=== PATIENT | male | born 1970 | race African-American/Black ===

== ENCOUNTER 2019-01-26 12:58 | Inpatient (IN) | payer OTHER ==
[2019-01-26 17:16] VITALS: BMI 31.1
--- NOTE | 2019-01-26 18:33 | HP ---
CIWA Score Nausea/Vomitin-No Nausea/No Vomiting (a) Muscle Tremors: 2 Anxiety: 3 Agitation: 1-Slight > Activity Paroxysmal Sweats: 3 Orientation: 0-Oriented Tacttile Disturbances: 1-Very Mild Itch/Numbness Auditory Disturbances: 0-None Visual Disturbances: 0-None Headache: 2-Mild CIWA-Ar Total Score: 12 - Admission Criteria OASAS Guidelines: Admission for Medically Managed Detox: Requires at least one of the followin. CIWA greater than 12 2. Seizures within the past 24 hours 3. Delirium tremens within the past 24 hours 4. Hallucinations within the past 24 hours 5. Acute intervention needed for co occurring medical disorder 6. Acute intervention needed for co occurring psychiatric disorder 7. Severe withdrawal that cannot be handled at a lower level of care (continued vomiting, continued diarrhea, abnormal vital signs) requiring intravenous medication and/or fluids 8. Admitting History and Physical - Past Medical History RESTORATION SILVERSMITH: Yes: Seizure, Syncope Cardiovascular: Yes: HTN Infectious Disease: Yes: AIDS, HIV - Past Surgical History Past Surgical History: Yes: Hernia Repair, Tonsillectomy - Smoking History Smoking history: Never smoked - Alcohol/Substance Use Hx Alcohol Use: Yes Number of Drinks Daily: 3 History of Substance Use: reports: Cocaine, Marijuana Admission ROS [facility] Allergies/Adverse Reactions: Allergies Allergy/AdvReac Type Severity Reaction Status Date / Time No Known Allergies Allergy Verified 01/26/19 17:09 History of Present Illness: 48 y.o. M HIV (On [facility], tx at [facility]- most recent cd4 400, viral load 75 as per patient), HTN, prediabetes, migraines, spinal meningitis at age 4 presenting for detox. Interested in rehab. Recommended here by his leather case finisher. Alcohol: Drinks daily, drink of choice is rum, but drinks vodka & tequila sometimes. Last drink was this morning. Has passed out twice from not drinking. Had a seizure in early 2018 from not drinking. Drinks 2 pints daily. Started at age 16 Crack cocaine: Smokes 2-3 bags occasionally, not daily. Last used last week. Started 2010. Marijuana: Seldom use. Started age 16. PSH:2007- umbilical hernia repair, 1999 tonsillectomy & adenoids Social hx: lives in HIV housing in [place]. Works as a peer worker with the opioid crisis. Says he has a great family support system. All: nkda/nkfa Meds: bactrim, azithromycin, lisinopril 10mg daily, metformin On physical exam, large macular purple lesions present diffusely across face, chest, back, abdomen, upper & lower extremities. Patient states these have been present x3 weeks. Says he has seen his HIV doctor and a jig grinder recently but this rash became worse after seeing these physicians. -I have strongly urged the patient to follow up with his HIV specialist as well as his jig grinder regarding this rash, as it clinically resembles kaposi's sarcoma. I have also expressed the importance of compliance with his medications. - Ebola screening Have you traveled outside of the country in the last 21 days: No Have you had contact with anyone from an Ebola affected area: No - Review of Systems Constitutional: Chills, Night Sweats Respiratory: reports: Cough (only at night when lying down) Cardiac: reports: No Symptoms Reported GI: reports: No Symptoms Reported Musculoskeletal: reports: No Symptoms Reported Integumentary: reports: Lesions (see physical exam) Neuro: reports: Headache (has h/o migraines), Tremors Endocrine: reports: No Symptoms Reported Hematology: reports: No Symptoms Reported Psychiatric: reports: Mood/Affect Appropiate, Orientated x3 Patient History - Smoking Cessation Smoking history: Never smoked - Substances abused Alcohol Substance route: Oral Frequency: Daily Amount used: 1 pint of rum/tequila Age of first use: 16 Date of last use: 01/26/19 Admission Physical Exam [facility] - Vital Signs Vital Signs: Vital Signs - 24 hr 01/26/19 17:13 Temperature 98.0 F Pulse Rate 94 H Respiratory 16 Rate Blood Pressure 146/86 - Physical General Appearance: Yes: Anxious HEENTM: Yes: EOMI, Hearing grossly Normal, Normal ENT Inspection, Normocephalic , KAREN Respiratory: Yes: Lungs Clear, Normal Breath Sounds Neck: Yes: Within Normal Limits Cardiology: Yes: Regular Rhythm, Regular Rate, S1, S2 Abdominal: Yes: Normal Bowel Sounds, Non Tender, Soft Musculoskeletal: Yes: full range of Motion Extremities: Yes: Tremors Neurological: Yes: review rn II-XII NML intact, Fully Oriented, Alert, Normal Mood/ Affect Integumentary: Yes: Other (Diffuse macular rash throughout entire body, lesions ~3-5cm varying in size- some crusting, some open & productive of blood, some closed and dry; face, chest, UE/LE's, chest, abdomen, back-- purple) - Diagnostic (1) Alcohol abuse Current Visit: Yes Status: Acute (2) Cocaine abuse Current Visit: Yes Status: Acute (3) Marijuana abuse Current Visit: Yes Status: Acute Cleared for Admission S - Detox or Rehab [facility] Level of Care: Medically Supervised Detox Regimen/Protocol: Librium Breathalyzer - Breathalyzer Breathalyzer: 0 Urine Drug Screen - Test Device Lot number: [id number] Expiration date: 09/01/20 - Control Is test valid?: Yes - Results Drug screen NEGATIVE: No Urine drug screen results: THC-Marijuana, SILVIA-Cocaine Inpatient Rehab Admission - Rehab Decision to Admit Inpatient rehab admission?: No
--- NOTE | 2019-01-26 19:12 | PN ---
Teaching Attending Note Name of Resident: Denita Mac ATTENDING PHYSICIAN STATEMENT I saw and evaluated the patient. I reviewed the resident's note and discussed the case with the resident. I agree with the resident's findings and plan as documented. SUBJECTIVE: 48 y.o. 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 Interested in rehab. Recommended here by his family caseworker from [facility] . Alcohol: 1-2 pints /day , starts drinking in the mornings , reports blackouts and a seizure in 2019 after stopping drinking alcohol. First age of use 16 . Crack cocaine: 2-3 bags via inhalation occasionally since 2010, Last used 1 week ago. Marijuana: Seldom used, since age 16. PSH:2007- umbilical hernia repair, 1999 tonsillectomy & adenoids OBJECTIVE: wnwd Skin : large macular purplish lesions present diffusely across face, chest, back, abdomen, upper & lower extremities, per pt present x 3 weeks. Vital Signs - 24 hr 01/26/19 17:13 Temperature 98.0 F Pulse Rate 94 H Respiratory 16 Rate Blood Pressure 146/86 ASSESSMENT AND PLAN: Alcohol dependence - Librium detox .
[2019-01-26] MEDS ORDERED: BISMUTH SUBSALICYLATE 524 MG/30 ML UD PO PRN (19:21)
[2019-01-26] MEDS ORDERED: METHOCARBAMOL 500 MG TABLET PO PRN (19:21)
[2019-01-26] MEDS ORDERED: MAGNESIUM HYDROX 2400MG/30ML ORAL SUSPENSION 30 ML CUP PO PRN (19:21)
[2019-01-26] MEDS ORDERED: MAGNESIUM CITRATE 300 ML BOTTLE PO PRN (19:21)
[2019-01-26] MEDS ORDERED: ACETAMINOPHEN 325 MG TABLET (FP) PO PRN ×2 (19:21)
[2019-01-26] MEDS ORDERED: MAG HYDROX/AL HYDROX/SIMETH 30 ML UNIT-DOSE CUP PO PRN (19:21)
[2019-01-26] MEDS ORDERED: IBUPROFEN 400 MG TABLET (FP) PO PRN (19:21)
[2019-01-26] MEDS ORDERED: MENTHOL/PHENOL 1 EACH UD MM PRN (19:21)
[2019-01-26] MEDS ORDERED: chlordiazePOXIDE HCL 10 MG CAPSULE PO PRN (19:21)
[2019-01-26] MEDS ORDERED: SODIUM CHLORIDE FOR INHALATION 3 ML VIAL.NEB IH PRN (19:38)
[2019-01-26] MEDS: chlordiazePOXIDE HCL 25 MG CAPSULE PO SCH (20:27)
[2019-01-26] MEDS: LISINOPRIL 10 MG TABLET (FP) PO SCH (20:27)
[2019-01-26] MEDS: THIAMINE HCL 100 MG TABLET (FP) PO SCH (22:14)
[2019-01-26] MEDS: MELATONIN 5 MG TABLETS PO PRN (22:14)
[2019-01-27] MEDS: chlordiazePOXIDE HCL 25 MG CAPSULE PO SCH ×3 (05:57→22:49)
[2019-01-27] MEDS: metFORMIN HCL 500 MG TABLET (FP) PO SCH ×2 (06:00→16:56)
[2019-01-27] MEDS: LISINOPRIL 10 MG TABLET (FP) PO SCH (10:21)
[2019-01-27] MEDS: PRENATAL VITAMINS W/ FOLIC ACID TABLET (FP) PO SCH (10:22)
[2019-01-27] MEDS: ATOVAQUONE 750 MG/5 ML (UNIT-DOSE PACKAGING) PO SCH ×2 (11:57→22:49)
[2019-01-27] MEDS: ABACAVIR/DOLUTEGRAVIR/LAMIVUDI (TRIUMEQ) TABLET -NF PO SCH (11:58)
[2019-01-27 12:31] LABS: ALBUMIN 3.4 g/dl (3.4-5.0); BILIRUBIN,TOTAL 0.2 mg/dL (0.2-1); BLOOD UREA NITROGEN 12.9 mg/dL (7-18); CALCIUM 8.6 mg/dL (8.5-10.1); CREATININE 0.8 mg/dL (0.55-1.3); POTASSIUM 4.6 mmol/L (3.5-5.1); TOT PROT 8.2 g/dl (6.4-8.2)
[2019-01-27 12:36] LABS: HEMATOCRIT 36.1 % (35.4-49); HEMOGLOBIN 11.7 GM/dL (11.7-16.9); MCH 28.5 pg (25.7-33.7); MCHC 32.5 g/dl (32.0-35.9); MEAN CELL VOLUME 87.9 fl (80-96); MEAN PLT VOLUME 8.9 fl (7.5-11.1); PLATELET COUNT 331 K/MM3 (134-434); RDW 17.6 % (11.9-15.9)
[2019-01-27 13:05] LABS: WHITE BLOOD COUNT 1.9 K/mm3 (4.0-10.0)
--- NOTE | 2019-01-27 16:22 | PN ---
S CIWA - CIWA Score Nausea/Vomitin-No Nausea/No Vomiting Muscle Tremors: 3 Anxiety: 3 Agitation: 1-Slight > Activity Paroxysmal Sweats: 3 Orientation: 0-Oriented Tacttile Disturbances: 2-Mild Itch/Numbness/Burn Auditory Disturbances: 0-None Visual Disturbances: 0-None Headache: 0-None Present CIWA-Ar Total Score: 12 BHS Progress Note (SOAP) Subjective: Sweating, Tremors, Anxious, Fatigue. Objective: PATIENT A & O X 3. IN NO ACUTE DISTRESS. 01/27/19 16:23 Vital Signs Temperature 97.2 F L 01/27/19 06:09 Pulse Rate 88 01/27/19 06:09 Respiratory Rate 18 01/27/19 06:09 Blood Pressure 115/72 01/27/19 06:09 O2 Sat by Pulse Oximetry (%) Laboratory Tests 01/27/19 01/27/19 01/27/19 05:56 07:55 07:55 WBC 1.9 L* RBC 4.10 Hgb 11.7 Hct 36.1 MCV 87.9 MCH 28.5 MCHC 32.5 RDW 17.6 H Plt Count 331 MPV 8.9 Sodium 139 Potassium 4.6 Chloride 108 H Carbon Dioxide 23 Anion Gap 8 BUN 12.9 Creatinine 0.8 Est GFR (CKD-EPI)AfAm 122.43 Est GFR (CKD-EPI)NonAf 105.63 POC Glucometer 97 Random Glucose 96 Calcium 8.6 Total Bilirubin 0.2 AST 36 ALT 35 Alkaline Phosphatase 193 H Total Protein 8.2 Albumin 3.4 RPR Titer 01/27/19 07:55 WBC RBC Hgb Hct MCV MCH MCHC RDW Plt Count MPV Sodium Potassium Chloride Carbon Dioxide Anion Gap BUN Creatinine Est GFR (CKD-EPI)AfAm Est GFR (CKD-EPI)NonAf POC Glucometer Random Glucose Calcium Total Bilirubin AST ALT Alkaline Phosphatase Total Protein Albumin RPR Titer Nonreactive LABS NOTED. Assessment: 01/27/19 16:23 WITHDRAWAL SYMPTOMS. ELEVATED ALKALINE PHOSPHATASE LEVEL. LEUKOPENIA (PATIENT HAS HISTORY OF H.I.V.). Plan: CONTINUE DETOX. INCREASE DAILY PO WATER INTAKE.
[2019-01-27] MEDS: hydrOXYzine PAMOATE 25 MG CAPSULE (FP) PO PRN (18:07)
[2019-01-27] MEDS: THIAMINE HCL 100 MG TABLET (FP) PO SCH (22:49)
[2019-01-27] MEDS: MELATONIN 5 MG TABLETS PO PRN (22:52)
[2019-01-28] MEDS: chlordiazePOXIDE 5 MG CAPSULE PO SCH ×3 (05:24→22:16)
[2019-01-28] MEDS: metFORMIN HCL 500 MG TABLET (FP) PO SCH ×2 (07:55→17:44)
--- NOTE | 2019-01-28 09:47 | PN ---
[facility] CIWA - CIWA Score Nausea/Vomitin-Mild Nausea/No Vomiting Muscle Tremors: 2 Anxiety: 2 Agitation: 2 Paroxysmal Sweats: 1-Minimal Palms Moist Orientation: 0-Oriented Tacttile Disturbances: 1-Very Mild Itch/Numbness Auditory Disturbances: 0-None Visual Disturbances: 0-None Headache: 1-Very Mild CIWA-Ar Total Score: 10 S Progress Note (SOAP) Subjective: 48 years old male admitted on 01/26/19 for alcohol withdrawal sx management treated with librium detox regimen tolerate well at this time ate breakfast tolerate food and fluid well Objective: 01/28/19 09:50 Vital Signs Temperature 97.8 F 01/28/19 09:07 Pulse Rate 95 H 01/28/19 09:07 Respiratory Rate 18 01/28/19 09:07 Blood Pressure 126/83 01/28/19 09:07 O2 Sat by Pulse Oximetry (%) Laboratory Last Values WBC 1.9 K/mm3 (4.0-10.0) L* 01/27/19 07:55 RBC 4.10 M/mm3 (4.00-5.60) 01/27/19 07:55 Hgb 11.7 GM/dL (11.7-16.9) 01/27/19 07:55 Hct 36.1 % (35.4-49) 01/27/19 07:55 MCV 87.9 fl (80-96) 01/27/19 07:55 MCH 28.5 pg (25.7-33.7) 01/27/19 07:55 MCHC 32.5 g/dl (32.0-35.9) 01/27/19 07:55 RDW 17.6 % (11.9-15.9) H 01/27/19 07:55 Plt Count 331 K/MM3 (134-434) 01/27/19 07:55 MPV 8.9 fl (7.5-11.1) 01/27/19 07:55 Sodium 139 mmol/L (136-145) 01/27/19 07:55 Potassium 4.6 mmol/L (3.5-5.1) 01/27/19 07:55 Chloride 108 mmol/L (98-107) H 01/27/19 07:55 Carbon Dioxide 23 mmol/L (21-32) 01/27/19 07:55 Anion Gap 8 MMOL/L (8-16) 01/27/19 07:55 BUN 12.9 mg/dL (7-18) 01/27/19 07:55 Creatinine 0.8 mg/dL (0.55-1.3) 01/27/19 07:55 Est GFR (CKD-EPI)AfAm 122.43 01/27/19 07:55 Est GFR (CKD-EPI)NonAf 105.63 01/27/19 07:55 POC Glucometer 91 UNITS (80-120) 01/28/19 05:23 Random Glucose 96 mg/dL (74-106) 01/27/19 07:55 Calcium 8.6 mg/dL (8.5-10.1) 01/27/19 07:55 Total Bilirubin 0.2 mg/dL (0.2-1) 01/27/19 07:55 AST 36 U/L (15-37) 01/27/19 07:55 ALT 35 U/L (13-61) 01/27/19 07:55 Alkaline Phosphatase 193 U/L (45-117) H 01/27/19 07:55 Total Protein 8.2 g/dl (6.4-8.2) 01/27/19 07:55 Albumin 3.4 g/dl (3.4-5.0) 01/27/19 07:55 RPR Titer Nonreactive (NONREACTIVE) 01/27/19 07:55 lab noted long history of hiv treated with triumeq wbc 1.9 patient acknowledged low wbc from hiv and ART patient agrees to bringing in lab report to ID provider for follow up 01/28/19 09:51 Assessment: 01/28/19 09:50 alcohol withdrawal sx Plan: continue librium detox regimen
[2019-01-28] MEDS: ABACAVIR/DOLUTEGRAVIR/LAMIVUDI (TRIUMEQ) TABLET -NF PO SCH (10:43)
[2019-01-28] MEDS: PRENATAL VITAMINS W/ FOLIC ACID TABLET (FP) PO SCH (10:43)
[2019-01-28] MEDS: LISINOPRIL 10 MG TABLET (FP) PO SCH (10:43)
[2019-01-28] MEDS: ATOVAQUONE 750 MG/5 ML (UNIT-DOSE PACKAGING) PO SCH ×2 (10:44→22:16)
[2019-01-28] MEDS: FLUTICASONE PROPIONATE IH SCH (13:39)
[2019-01-28] MEDS: THIAMINE HCL 100 MG TABLET (FP) PO SCH (22:16)
[2019-01-28] MEDS: MELATONIN 5 MG TABLETS PO PRN (22:16)
[2019-01-28] MEDS: hydrOXYzine PAMOATE 25 MG CAPSULE (FP) PO PRN (22:17)
[2019-01-29] MEDS ORDERED: chlordiazePOXIDE HCL 10 MG CAPSULE PO PRN
[2019-01-29] MEDS ORDERED: chlordiazePOXIDE HCL 10 MG CAPSULE PO SCH (05:00)
[2019-01-29] MEDS: metFORMIN HCL 500 MG TABLET (FP) PO SCH (07:26)
[2019-01-29] MEDS: PRENATAL VITAMINS W/ FOLIC ACID TABLET (FP) PO SCH (10:21)
[2019-01-29] MEDS: LISINOPRIL 10 MG TABLET (FP) PO SCH (10:21)
[2019-01-29] MEDS: ABACAVIR/DOLUTEGRAVIR/LAMIVUDI (TRIUMEQ) TABLET -NF PO SCH (11:15)
[2019-01-29 13:40] VITALS: BP 140/95; PULSE 92; TEMP 97.9
--- NOTE | 2019-01-29 14:33 | DS ---
[facility] Detox Discharge Summary Admission Date: 01/26/19 Discharge Date: 01/29/19 - History Present History: Alcohol Dependence Additional Comments: 48 years old male admitted on 01/26/19 for alcohol withdrawal sx management treated with librium detox regimen patient tolerate well estimate discharge date is 01/30/19 patient prefers to be discharged one day early that he wants to go to [facility] today case discuss with counselor and nurse routine discharge is suitable for current situation Pertinent Past History: respiratory clear lung bilaterally on auscultation abdomen soft round obese no rebound tenderness skin warm and dry - Physical Exam Results Vital Signs: Vital Signs Temperature 97.9 F 01/29/19 13:39 Pulse Rate 92 H 01/29/19 13:39 Respiratory Rate 16 01/29/19 13:39 Blood Pressure 140/95 01/29/19 13:39 O2 Sat by Pulse Oximetry (%) Pertinent Admission Physical Exam Findings: alcohol withdrawal sx Laboratory Last Values WBC 1.9 K/mm3 (4.0-10.0) L* 01/27/19 07:55 RBC 4.10 M/mm3 (4.00-5.60) 01/27/19 07:55 Hgb 11.7 GM/dL (11.7-16.9) 01/27/19 07:55 Hct 36.1 % (35.4-49) 01/27/19 07:55 MCV 87.9 fl (80-96) 01/27/19 07:55 MCH 28.5 pg (25.7-33.7) 01/27/19 07:55 MCHC 32.5 g/dl (32.0-35.9) 01/27/19 07:55 RDW 17.6 % (11.9-15.9) H 01/27/19 07:55 Plt Count 331 K/MM3 (134-434) 01/27/19 07:55 MPV 8.9 fl (7.5-11.1) 01/27/19 07:55 Sodium 139 mmol/L (136-145) 01/27/19 07:55 Potassium 4.6 mmol/L (3.5-5.1) 01/27/19 07:55 Chloride 108 mmol/L (98-107) H 01/27/19 07:55 Carbon Dioxide 23 mmol/L (21-32) 01/27/19 07:55 Anion Gap 8 MMOL/L (8-16) 01/27/19 07:55 BUN 12.9 mg/dL (7-18) 01/27/19 07:55 Creatinine 0.8 mg/dL (0.55-1.3) 01/27/19 07:55 Est GFR (CKD-EPI)AfAm 122.43 01/27/19 07:55 Est GFR (CKD-EPI)NonAf 105.63 01/27/19 07:55 POC Glucometer 100 UNITS (80-120) 01/28/19 20:53 Random Glucose 96 mg/dL (74-106) 01/27/19 07:55 Calcium 8.6 mg/dL (8.5-10.1) 01/27/19 07:55 Total Bilirubin 0.2 mg/dL (0.2-1) 01/27/19 07:55 AST 36 U/L (15-37) 01/27/19 07:55 ALT 35 U/L (13-61) 01/27/19 07:55 Alkaline Phosphatase 193 U/L (45-117) H 01/27/19 07:55 Total Protein 8.2 g/dl (6.4-8.2) 01/27/19 07:55 Albumin 3.4 g/dl (3.4-5.0) 01/27/19 07:55 RPR Titer Nonreactive (NONREACTIVE) 01/27/19 07:55 lab noted long history of hiv treated with ART low wbc patient agrees to bring in lab report to ID provider for follow up - Treatment Hospital Course: Detox Protocol Followed, Detoxed Safely, Responded well, Discharged Condition Good, Rehab Referral Accepted Patient has Accepted a Rehab Referral to: [facility] Outpatient intensive treatment - Medication Discharge Medications: Ambulatory Orders Abacavir/Dolutegravir/Lamivudi [Triumeq 600-50-300 mg Tablet] 1 each PO DAILY Atovaquone [Mepron Oral Solution -] 750 mg PO BID 01/26/19 Azithromycin 500 mg PO WEEKLY 01/26/19 Fluticasone Propionate [Flovent Hfa] 1 puff IH BID 01/26/19 Lisinopril 10 mg PO DAILY 01/26/19 metFORMIN HCL [Metformin HCl] 500 mg PO BID 10/25/19 - Diagnosis (1) HIV (human immunodeficiency virus infection) Current Visit: Yes Status: Chronic Qualifiers: HIV symptom status: asymptomatic Qualified Code(s): Z21 - Asymptomatic human immunodeficiency virus [HIV] infection status (2) Alcohol abuse Current Visit: Yes Status: Acute - AMA Did Patient Leave Against Medical Advice: No CIWA Score - CIWA Score Nausea/Vomitin-No Nausea/No Vomiting Muscle Tremors: 1-None Visible, but Hydes Anxiety: 1-Mildly Anxious Agitation: 1-Slight > Activity Paroxysmal Sweats: 1-Minimal Palms Moist Orientation: 0-Oriented Tacttile Disturbances: 0-None Auditory Disturbances: 0-None Visual Disturbances: 0-None Headache: 1-Very Mild CIWA-Ar Total Score: 5
[2019-01-30] MEDS ORDERED: chlordiazePOXIDE HCL 10 MG CAPSULE PO ONE (05:00)
[2019-01-30] MEDS ORDERED: AZITHROMYCIN 500 MG TABLET PO SCH (10:00)
== END 2019-01-29 12:52 | disposition home or self-care (01) | DRG 774 ==
LOC: YASAS 12:58 → Y3N 19:46
PROVIDERS: ADMIT Allergy & Immunology; ATTEND Allergy & Immunology
PROC: HZ2ZZZZ Detoxification Services for Substance Abuse Treatment (ICD-10-PCS; principal; 2019-01-26)
DX: F10.230 Alcohol dependence with withdrawal, uncomplicated (principal); F14.10 Cocaine abuse, uncomplicated; F12.10 Cannabis abuse, uncomplicated; Z21 Asymptomatic human immunodeficiency virus [HIV] infection status; R74.0 Nonspecific elevation of levels of transaminase and lactic acid dehydrogenase [LDH]; D72.819 Decreased white blood cell count, unspecified
CPT/HCPCS: 36415; 80053; 82962; 85027; 86593